=== PATIENT | female | born 1945 | race Caucasian/White ===

== ENCOUNTER 2019-06-06 19:00 | Inpatient (IN) ==
--- NOTE | 2019-06-06 19:30 | PROVIDER DOCUMENTATION ---
HPI-General Adult - General Chief Complaint: Weakness Stated Complaint: SENT PER Time Seen by Provider: 06/06/19 19:17 Source: patient, family ( and daughter at bedside) - History of Present Illness -Gen Adult Nature of Presenting Problems: 73 YO F pmh for HTN and chronic back pain presents with c/o weakness and lightheadedness x 2 days. Pt states she went to PCP and had an abnormal lab as well. She currently denies any new pain, has chronic pain in back and shoulders. She walks around with a walker. She states she had a dizzy spell and landed in her recliner, denies LOC or head injury. Per daughter, pt has been with some confusion x 2 days. Pt states she has poor urine output currently and may have a UTI. Last BM this evening. Location of Pain/Injury: reports: none Quality of Pain: reports: aching, other (chronic pains) Onset/Duration: reports: 2 days ago Timing: reports: still present (light headedness) Context/Activities at Onset: reports: none Modifying Factors: improves with: nothing Associated Symptoms: reports: back/neck pain (chronic). denies: loss of appetite, nausea, seizure, shortness of breath, syncope, vomiting Similar Symptoms Previously?: Yes Recently seen or treated by another doctor?: Yes Review of Systems - Adult - REVIEW OF SYSTEMS - ADULT Constitutional: denies: chills, fever Eyes: reports: no symptoms reported Ears, Nose, Mouth & Throat: reports: no symptoms reported Cardiovascular: denies: chest pain, edema Respiratory: denies: cough, shortness of breath, wheezing Gastrointestinal: reports: see HPI. denies: abdominal pain, constipation, nausea, vomiting Genitourinary: reports: see HPI, urinary retention Musculoskeletal: reports: back pain (chronic) Integumentary: reports: no symptoms reported Neurological: reports: dizziness/vertigo, loss of balance, other (confusion). denies: syncope Past History - Adult - PAST MEDICAL HISTORY-ADULT Review of Records: reports: Social history reviewed & non-contributory. Cardiovascular: reports: HTN Gastrointestinal: reports: denies history Musculoskeletal: reports: neck/back injury, other - PRIOR SURGERIES/PROCEDURES Surgical/Procedure History: reports: back/neck - FAMILY HISTORY Family History: reviewed, not pertinent - SOCIAL HISTORY Smoking: denies Substance Use: denies Living Situation: family Physical Exam-General - PHYSICAL EXAM-ADULT Initial Vital Signs Reviewed: Yes - CONSTITUTIONAL General Appearance: alert - EYES Eyes: PERRL/EOMI, pink conjunctivae - HEAD, EARS, NOSE, MOUTH & THROAT HENMT: normocephalic/atraumatic - NECK Neck: non-tender, supple - RESPIRATORY Respiratory: lungs clear, normal breath sounds - CARDIOVASCULAR Cardiovascular: regular rate, rhythm, no edema - GASTROINTESTINAL (ABDOMEN) Abdominal Exam: non tender, soft - MUSCULOSKELETAL Extremity: normal range of motion - SKIN Integumentary: normal color, normal turgor - NEUROLOGIC Neurologic: borderer II-XII nml as tested, no motor/sensory deficits, negative romberg's sign. negative: facial droop, focal weakness, motor weakness, sensory deficit - PSYCHIATRIC Psych/Mental Status: normal mood/affect, other (mild confusion) Progress - PLAN OF CARE/RESULTS Progress/Plan/Lab Results: Vital Signs - 8 hr 06/06/19 19:09 Temperature 97.8 F Pulse Rate 88 Respiratory Rate 16 Blood Pressure 97/59 O2 Sat by Pulse Oximetry 100 Orders Category Date Time Status ED: Orthostatic Vital Signs (E DIRECTED Care 06/06/19 19:21 Active Saline Loc NOW Care 06/06/19 19:21 Active CBC WITH ELECTRONIC DIFF [HEME] Stat Lab 06/06/19 19:21 Uncollected COMPREHENSIVE METABOLIC PANEL [CHEM] Stat Lab 06/06/19 19:21 Uncollected TSH Stat Lab 06/06/19 19:21 Uncollected URINALYSIS W/POSS RFLX CULT [URINALYSIS] Stat Lab 06/06/19 19:21 Uncollected EKG [EKG] Stat Ther 06/06/19 19:21 Ordered Result Diagrams: 06/06/19 20:47 06/06/19 20:47 - REASSESSMENT Reassessment #1 Time Reassessed: 20:41 Status: unchanged (orthostatics normal) Reassessment #2 Time Reassessed: 21:47 Status: unchanged (labs reviewed. showing hyponatremia at 115) - EKG 1 EKG Read and Signed by:: Wendy Mtz EKG Interpretation (*Must complete 3 of following elements*): Normal Rate: 87 Rhythm: NSR Mcdonald: normal QRS: normal WA Interval: normal ST Wave: normal Prior EKG Comparison: no prior EKG - XRAY 1 XRAY Study: Chest Impression: See EMR Report (HISTORY: weakness TECHNIQUE: Chest two views COMPARISON: None. FINDINGS: The lungs are well expanded. The heart is not enlarged. The vessels are not distended. There are mild increased markings in the left base. No pleural effusions. Prior surgery to the lower neck. IMPRESSION: Scarring versus small left basilar infiltrate. Electronically signed by Aydin Louis 06/06/2019 10:28 PM) - CT/MRI 1 CT Study: Head Impression: See EMR Report (COMPARISON: None. FINDINGS: No parenchymal hemorrhage. No epidural or subdural hematoma. No subarachnoid hemorrhage. Mild chronic microvascular ischemic changes. No mass identified on this noncontrasted exam. No hydrocephalus. No sinus opacification. IMPRESSION: No hemorrhage. Mild chronic microvascular ischemic changes. This exam was performed using automated exposure control, adjustment of mA or kV according to patient size, and/or use of iterative reconstruction technique. Electronically signed by Aydin Louis 06/06/2019 8:38 PM) - CONSULTS/PCP/HOSPITALIST Notification #1 *Consult/PCP/Hospitalist*: Dr. Benoit Time Discussed: 21:47 Consult Disposition: Will see in ED Departure - Departure Date of Disposition Decision: 06/06/19 Time of Disposition Decision: 21:46 DIAGNOSIS: Hyponatremia Disposition: ADMITTED INPATIENT 09 Certified Medical Emergency: Emergent Condition: Stable Referrals and Follow-Ups: Indu Duval MD [Primary Care Provider] - - Critical Care Note This patient required my direct & personal management of CC.: No Attestation - Physician/ LISSETT Attestation The physician spent face to face time with patient:: Yes Advanced Practice Provider documentation review:: Supervising physician onsite and consulted in the evaluation and care of this patient. The physician did have a face to face encounter with the patient.
[2019-06-06] MEDS ORDERED: NS 500 ML IV ONE (19:59)
--- NOTE | 2019-06-06 20:16 | EKG Report ---
Test Performed on : 06/06/2019 7:36:47 PM Test Reason : CP Blood Pressure : / mmHG Vent. Rate : 087 BPM Atrial Rate : 087 BPM P-R Int : 204 ms QRS Dur : 086 ms QT Int : 380 ms P-R-T Axes : 046 -10 004 degrees QTc Int : 457 ms Normal sinus rhythm. Normal ECG No previous ECGs available Unconfirmed Result
--- NOTE | 2019-06-06 20:41 | Diag Imaging Result Doc PS360 ---
EXAM: CT HEAD W/O CONTRAST HISTORY: AMS TECHNIQUE: CT head without contrast COMPARISON: None. FINDINGS: No parenchymal hemorrhage. No epidural or subdural hematoma. No subarachnoid hemorrhage. Mild chronic microvascular ischemic changes. No mass identified on this noncontrasted exam. No hydrocephalus. No sinus opacification. IMPRESSION: No hemorrhage. Mild chronic microvascular ischemic changes. This exam was performed using automated exposure control, adjustment of mA or kV according to patient size, and/or use of iterative reconstruction technique. Electronically signed by Aydin Louis 06/06/2019 8:38 PM
[2019-06-06 21:27] LABS: BASO# 0.01 X1000 (0.0-0.2); BASO% 0.1 % (0.0-0.8); EOS# 0.12 X1000 (0.0-0.7); EOS% 1.2 % (0.0-10.0); HEMATOCRIT 23.8 % (37.0-47.0); HEMOGLOBIN 8.1 g/dL (12.0-16.0); IMM GRAN# 1.29 X1000 (0.0-0.04); IMM GRAN% 12.9 % (0.0-0.5); LYMPH# 0.43 X1000 (1.2-3.4); LYMPH% 4.3 % (20.5-51.1); MCV 91.2 FL (81-99); MONO# 0.31 X1000 (0.11-0.59); MONO% 3.1 % (1.7-9.3); MPV 11.3 FL (7.4-10.4); NEUT# 7.84 X1000 (1.4-6.5); NEUT% 78.4 % (42.2-75.2); PLT 92 X1000 (130-400); RBC 2.61 XMIL (4.2-5.4); RDW 13.9 % (11.5-14.5)
[2019-06-06 21:30] LABS: ALB/GLOB RATIO 1.1; ALBUMIN 2.9 g/dL (3.5-5.0); CALCIUM 8.2 mg/dL (8.8-10.2); POTASSIUM 4.2 mmol/L (3.5-5.1); TOTAL BILIRUBIN 0.49 mg/dL (0.20-1.00); TOTAL PROTEIN 5.5 g/dL (6.3-8.3)
[2019-06-06] MEDS ORDERED: NS 1,000 ML IV SCH (22:00)
--- NOTE | 2019-06-06 22:31 | Diag Imaging Result Doc PS360 ---
EXAM: CHEST-2 VIEWS HISTORY: weakness TECHNIQUE: Chest two views COMPARISON: None. FINDINGS: The lungs are well expanded. The heart is not enlarged. The vessels are not distended. There are mild increased markings in the left base. No pleural effusions. Prior surgery to the lower neck. IMPRESSION: Scarring versus small left basilar infiltrate. Electronically signed by Aydin Louis 06/06/2019 10:28 PM
--- NOTE | 2019-06-06 22:58 | HISTORY AND PHYSICAL ---
PRIMARY CARE PHYSICIAN: Indu Duval MD CHIEF COMPLAINT: Dizziness, weakness times several days. HISTORY OF PRESENTING ILLNESS: A 73-year-old female with a history of spinal stenosis, iron- deficiency anemia and hypertension who presented to emergency department with 2 to 3 days history of having worsening weakness, dizziness and fatigue. She states that the symptoms are worsening. She did not feel well and subsequently she had come to the emergency department. In the ED, she was evaluated. She had laboratories drawn that did show that she was dehydrated and also hyponatremic and due to her presenting symptoms, she will require admission for further management. The patient states that she may have over did it for the past several days or so because she is trying to do a yard sale and she may have over done it during this time. At the time of my examination, patient denied any headache, fever, chills, chest pain, shortness of breath or any weight changes but complained of weakness and not feeling well. PAST MEDICAL HISTORY: Includes spinal stenosis, iron-deficiency anemia and hypertension. PAST SURGICAL HISTORY: Left knee surgery, left femur surgery, back surgery, gastric bypass. ALLERGIES TO: Wellbutrin. CURRENT MEDICATIONS: She does not recall. Nursing staff we will reconcile. SOCIAL HISTORY: No history of smoking, alcohol or illicit drug use. FAMILY HISTORY: No history of coronary disease. REVIEW OF SYSTEMS: Fourteen point review of systems is as in HPI. Other systems negative. PHYSICAL EXAMINATION: GENERAL: Cooperative, friendly female. She is resting comfortably, but she seemed fatigued. VITAL SIGNS: Temperature 97.8 degrees, pulse 88, respirations 16, blood pressure 97/59. HEENT: Atraumatic, normocephalic. Extraocular movements intact. PERRLA. NECK: No masses. CHEST: Clear to auscultation. CARDIOVASCULAR: Regular rate and rhythm. ABDOMEN: Soft. Positive bowel sounds. EXTREMITIES: No edema. NEUROLOGIC: She is awake, alert, oriented x3. : No bladder distention. SKIN: Has poor turgor. LABORATORIES AND STUDIES: WBC 10.0, hemoglobin 8.1, hematocrit 23.8, platelets 92,000. Sodium 115, potassium 4.2, chloride 86, CO2 is 19, BUN is 45, creatinine 3.0, glucose 91. A CT of the head, no hemorrhage. Mild chronic microvascular ischemic changes. Chest x-ray shows scarring worse. There is a small left basilar infiltrate. ASSESSMENT: This is a 73-year-old female with a history of spinal stenosis, iron-deficiency anemia and hypertension who presented to emergency department with several days history of worsening weakness, lethargy and fatigued. She states that during this time, she was also dizzy. She was evaluated in the emergency department. She was found to be in renal failure and also hyponatremic and due to these presenting symptoms, she will require admission for further management. ASSESSMENT: 1. Generalized weakness. 2. Hyponatremia. 3. Acute kidney injury. 4. Iron-deficiency anemia. 5. Hypertension. PLAN: 1. We will admit patient to medical floor with telemetry. 2. We will continue supportive treatment with IV fluids, antiemetics as needed. 3. We will monitor her renal function. Consult Nephrology. 4. We will monitor her hemoglobin and hematocrit closely and she may need iron transfusion. 5. We will monitor blood pressure. Resume antihypertensive agent. 6. Put patient on deep vein thrombosis prophylaxis with sequential compression devices. 7. We will continue to follow and reassess. Make further recommendation based on patient's clinical course. cc: Sal Benoit MD MTDD
[2019-06-07] MEDS ORDERED: NS 1,000 ML IV SCH (00:32)
[2019-06-07 07:46] LABS: CALCIUM 7.6 mg/dL (8.8-10.2); CREATININE 2.7 mg/dL (0.5-0.9); POTASSIUM 4.5 mmol/L (3.5-5.1)
[2019-06-07 07:54] LABS: BASO# 0.01 X1000 (0.0-0.2); BASO% 0.1 % (0.0-0.8); EOS# 0.12 X1000 (0.0-0.7); EOS% 1.5 % (0.0-10.0); HEMATOCRIT 24.4 % (37.0-47.0); HEMOGLOBIN 8.1 g/dL (12.0-16.0); IMM GRAN# 0.06 X1000 (0.0-0.04); IMM GRAN% 0.8 % (0.0-0.5); LYMPH# 0.25 X1000 (1.2-3.4); LYMPH% 3.2 % (20.5-51.1); MCH 29.8 PG (27-31); MCHC 33.2 g/dL (33-37); MCV 89.7 FL (81-99); MONO# 0.36 X1000 (0.11-0.59); MONO% 4.6 % (1.7-9.3); MPV 11.4 FL (7.4-10.4); NEUT# 7.07 X1000 (1.4-6.5); NEUT% 89.8 % (42.2-75.2); PLT 81 X1000 (130-400); RBC 2.72 XMIL (4.2-5.4); RDW 13.9 % (11.5-14.5); WBC 7.87 X1000 (4.8-10.8)
[2019-06-07 07:56] LABS: BANDS 8 % (0-1); LYMPHS 6 % (21-51); MONO 2 % (1-9); SEGS 84 % (42-75)
[2019-06-07 09:59] LABS: URINE SOURCE CATH
[2019-06-07 10:03] LABS: BILIRUBIN URINE NEGATIVE (NEGATIVE); BLOOD URINE TRACE (NEGATIVE); COLOR YELLOW; GLUCOSE URINE NEGATIVE (NEGATIVE); KETONE URINE NEGATIVE (NEGATIVE); LEUKOCYTES URINE LARGE (NEGATIVE); NITRITE URINE POSITIVE (NEGATIVE); PH URINE 6.5; PROTEIN URINE TRACE mg/dL (NEGATIVE); SP GRAVITY URINE 1.005; TURBIDITY URINE HAZY (CLEAR); UR EPITHELIAL CELLS <10 /HPF (<10); URINE BACTERIA 3+ /HPF; URINE WBC TNTC /HPF (<10); UROBILINOGEN URINE NORMAL (NORMAL)
[2019-06-07 10:25] LABS: UR CREAT RANDOM 17.2 mg/dL (11-20); UR PROT RANDOM 11.9 mg/dL
[2019-06-07] MEDS: TYLENOL PO PRN (10:50)
--- NOTE | 2019-06-07 12:02 | Diag Imaging Result Doc PS360 ---
EXAM: US RENAL 2 (RETROPER) COMPLETE INDICATION: decreased renal function TECHNIQUE: COMPARISON: None. FINDINGS: The kidneys are grossly normal in echotexture with no discrete renal mass or hydronephrosis. The right kidney measures 10.3 cm and the left kidney measures 10.9 cm in the greatest longitudinal axes. Right renal cortex measures 0.7 cm and the left renal cortex measures 1 cm in thickness. There is a Diaz catheter in the urinary bladder and the bladder is nondistended. IMPRESSION: Unremarkable renal ultrasound. Electronically signed by Reinaldo Squires 06/07/2019 12:00 PM
[2019-06-07 12:38] LABS: INR 1.14; PROTIME 14.8 Seconds (11.0-16.0)
[2019-06-07 12:39] LABS: PTT 34.9 Seconds (22.3-41.8)
[2019-06-07 12:56] LABS: IRON SATURATION 14 %; TIBC 139 ug/dL; TOTAL IRON 19 ug/dL (49-151); UNBOUND IRON 120 ug/dL (112-346)
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
--- NOTE | 2019-06-07 15:48 | PROGRESS NOTE ---
DATE: 06/07/2019 INTERVAL HISTORY: She was admitted for hyponatremia, acute kidney injury leading to weakness and dizziness. SUBJECTIVE: She is feeling the same. She is still feeling weak. I had a discussion with her about volume depletion, dehydration, use of oral diclofenac and losartan probably contributing to it. I answered all of her questions. Her family is at bedside. Patient denies any burning or pain while micturating. She denies any increasing frequency of urination. VITALS: Temperature 97.9 degrees, pulse 87, respiratory rate 19, blood pressure 107/60, saturating 97% on room air. OBJECTIVE: On physical examination, she is not in any acute distress. Oral cavity is moist. Air entry bilaterally equal. No wheeze or rhonchi. She had inspiratory crackles, bilateral infrascapular region. S1, S2 normal. No murmur or gallop. Abdomen is soft, nontender, obese. No lower extremity edema. She has urine catheter. SIGNIFICANT LABS: She does have normocytic anemia and thrombocytopenia. Improving sodium level as well as chloride level, improving BUN and creatinine. Her iron stores do not suggest iron deficiency. She has chronically elevated alkaline phosphatase, and she has history of osteoporosis. MICROBIOLOGY: No data. IMAGING: Renal ultrasound had unremarkable kidneys. ASSESSMENT AND PLAN: 1. Generalized weakness and dizziness in the setting of profound hyponatremia with acute kidney injury. Her use of oral diclofenac could have contributed to poor oral intake, could have contributed to acute kidney injury. She is also on losartan and has not been able to eat well since last few days. She has been on intravenous fluids with appropriate rise in sodium level in initial 24 hours. I will continue Diaz catheter with close input and output monitoring, and we will give additional intravenous fluids as necessary. I will continue to hold any NSAIDs and ARB medications at the moment. 2. History of iron deficiency anemia with thrombocytopenia. She sees Dr. Jayne Higginbotham outpatient, and I advised her to have outpatient followup with Dr. Higginbotham. 3. Essential hypertension. Currently, she is normotensive. I will continue to monitor her blood pressure. 4. History of chronic spinal stenosis and chronic back pain. I will keep her on acetaminophen. She should also have outpatient follow-up for chronically elevated alkaline phosphatase. She denies any urinary symptoms, though the urine culture is in lab. DISPOSITION: I will continue to monitor patient in the hospital. Plan of care discussed with her and her daughter at bedside. Their questions have been answered. cc: Ruddy Leary MD [facility]
--- NOTE | 2019-06-07 17:06 | ECHO REPORT ---
ORDER DATE: 06/07/2019 INTERPRETING PHYSICIAN: Michele Ramsey MD. CLINICAL INDICATIONS: Patient with renal failure and dyspnea. M-MODE MEASUREMENTS: Left ventricle end diastole: 5.5 cm. Left ventricle end systole: 4.0 cm. Posterior wall: 0.8 cm. Interventricular septum: 0.8 cm. Left atrium: 4.9 cm. Aortic diameter: 2.8 cm. SUMMARY OF 2-DIMENSIONAL IMAGIN. The left ventricular chamber appears to be generous in size. The systolic function is normal, ejection fraction estimated at 55% to 60%. 2. The left atrium is significantly enlarged. 3. The mitral valve looks grossly normal. Color flow mapping indicates mild to moderate degree of regurgitation. 4. Pulse waved Doppler of mitral inflow shows a "normal" E/A ratio. 5. Tissue Doppler of septal and lateral mitral annulus averages 8 cm. 6 .The deceleration time appears to be short, which raises concern for elevated left atrial pressure. 7. The tricuspid valve shows moderate degree of regurgitation. 8. Pulmonary systolic pressure is estimated at 53 to 58 mmHg. 9. The aortic valve is grossly normal. 10.The pulmonic valve is also grossly normal. 11.There is no pericardial effusion, no mass, and no thrombus. Clinical correlation is recommended. cc: MD Scott Schilling MD
--- NOTE | 2019-06-08 07:20 | EKG Report ---
Test Performed on : 06/08/2019 06:44:51 AM Test Reason : Abnormal Telemetry strip Blood Pressure : / mmHG Vent. Rate : 124 BPM Atrial Rate : 124 BPM P-R Int : 180 ms QRS Dur : 078 ms QT Int : 284 ms P-R-T Axes : 068 -18 101 degrees QTc Int : 408 ms Sinus tachycardia. Nonspecific ST and T wave abnormality Abnormal ECG When compared with ECG of 06-JUN-2019 19:36, (Unconfirmed) ST now depressed in Lateral leads Nonspecific T wave abnormality now evident in Lateral leads Confirmed by Vinny Padilla MD ([id number]) on 06/08/2019 9:00:54 AM
[2019-06-08] MEDS ORDERED: NS 1,000 ML IV ONE (07:41)
[2019-06-08 08:05] LABS: RETIC% 1.43 % (0.8-2.1); RETIC-HE 24.7 PG (28.2-36.6)
[2019-06-08] MEDS: TYLENOL PO PRN ×2 (08:05→23:58)
[2019-06-08] MEDS: DITROPAN PO SCH (08:05)
[2019-06-08] MEDS: ZOSYN 3.375 GM in NS 50 ML IV SCH ×3 (08:06→21:27)
[2019-06-08] MEDS: NS 1,000 ML IV SCH ×3 (08:15→23:58)
[2019-06-08 08:18] LABS: BASO# 0.01 X1000 (0.0-0.2); BASO% 0.2 % (0.0-0.8); EOS# 0.04 X1000 (0.0-0.7); EOS% 0.7 % (0.0-10.0); HEMATOCRIT 26.3 % (37.0-47.0); HEMOGLOBIN 8.9 g/dL (12.0-16.0); IMM GRAN# 0.08 X1000 (0.0-0.04); IMM GRAN% 1.5 % (0.0-0.5); LYMPH# 0.09 X1000 (1.2-3.4); LYMPH% 1.6 % (20.5-51.1); MCH 29.5 PG (27-31); MCHC 33.8 g/dL (33-37); MCV 87.1 FL (81-99); MONO# 0.24 X1000 (0.11-0.59); MONO% 4.4 % (1.7-9.3); MPV 11.3 FL (7.4-10.4); NEUT# 5.03 X1000 (1.4-6.5); NEUT% 91.6 % (42.2-75.2); PLT 73 X1000 (130-400); RBC 3.02 XMIL (4.2-5.4); RDW 13.9 % (11.5-14.5); WBC 5.49 X1000 (4.8-10.8)
[2019-06-08 08:38] LABS: BANDS 14 % (0-1); LYMPHS 6 % (21-51); SEGS 78 % (42-75)
[2019-06-08 09:00] LABS: ALB/GLOB RATIO 1.2; ALBUMIN 2.7 g/dL (3.5-5.0); DIRECT BILIRUBIN 0.5 mg/dL (0.00-0.20); TOTAL BILIRUBIN 0.89 mg/dL (0.20-1.00)
[2019-06-08 09:14] LABS: CALCIUM 8.2 mg/dL (8.8-10.2); CREATININE 2.2 mg/dL (0.5-0.9); POTASSIUM 4.4 mmol/L (3.5-5.1)
--- NOTE | 2019-06-08 09:35 | Diag Imaging Result Doc PS360 ---
CHEST-PORTABLE - 06/08/2019 INDICATION: Evaluate for pneumonia COMPARISON: 06/06/2019 FINDINGS: Lung volumes remain low. There are some stable faint atelectasis or infiltrate at the left lower lobe on the hemidiaphragm. No new infiltrates. Heart size is normal. No pneumothorax or pleural effusion. IMPRESSION: No change from prior. Electronically signed by Santos Sharp 06/08/2019 9:32 AM
--- NOTE | 2019-06-08 13:39 | PROGRESS NOTE ---
DATE: 06/08/2019 INTERVAL HISTORY: I was paged in the morning time that the patient had fever of 103 degrees Fahrenheit and she was extremely lethargic. She was also tachycardic. I immediately evaluated the patient at bedside. She is arousable to verbal stimuli, but appears really weak. The patient has multiple family members at the bedside. One of the daughters today tells me that when she visited her primary care doctor, she was found to have a urine infection, though she was not started on antibiotic. She was sent to the emergency room. However, yesterday I did not get this piece of information from patient or the other daughter who was at bedside. In any case, by the time I evaluated her I had ordered normal saline and antibiotics that she has been started on. Additional blood culture, lactate blood tests have been ordered. SUBJECTIVE: She feels very lethargic. She is feeling very weak. She denies any complaints. Family at bedside. Denies any cough. VITALS: Currently temperature of 103.3 degrees, pulse 125, respiratory rate 14, blood pressure 128/74, saturating 99% on 4 L nasal cannula. PHYSICAL EXAMINATION: She is in mild to moderate distress. She is lethargic. Oral cavity is dry. She has inspiratory crackles bilateral infrascapular region.Cardiovascular: S1, S2 normal. Regular. Tachycardic. No murmur, rub, or gallop. Abdomen: Soft. No tender. Extremities: No lower extremity edema. : She has a urine catheter. Neurologic: She is arousable to verbal stimuli and she becomes alert but then becomes drowsy again. She is able to move both upper and lower extremities. LABS: Suggestive of no leukocytosis, normocytic anemia, thrombocytopenia. She also has hyponatremia. Her kidney function is improving at the moment. Her initial troponin was 0.304. Microbiology, blood cultures, and urine culture in lab. On extended review, I could see her urine culture was collected on June 05 which is growing Escherichia coli which is pansensitive as per the report on June 07. IMAGING: Chest x-ray has low lung volumes. There was some atelectasis or infiltrate in left lower lobe, but without any pneumothorax or pleural effusion. EKG suggests sinus tachycardia. ASSESSMENT AND PLAN: 1. Sepsis likely from acute urinary tract infection. Based on her course, I would consider getting a CT scan of the abdomen and pelvis to rule out acute pyelonephritis. Her current presentation could be acute cysto urethritis. Continue intravenous fluids, intravenous Zosyn. Follow up blood culture and urine culture report. Her lactate was normal. 2. Acute kidney injury and hyponatremia on presentation. Could be related to acute pyelonephritis versus volume depletion versus use of oral diclofenac and losartan. I will continue close input and output monitoring, intravenous fluid resuscitation and follow up urine culture results. She her urine output is 3.7 L. Continue to hold nephrotoxic medication. 3. Generalized weakness and dizziness on presentation. This could be related to metabolic derangement. She does have new thrombocytopenia. She does not have any rash and her current sepsis could be contributing to it. I will keep a close eye over platelets to make sure it is not thrombotic thrombocytopenic purpura considering altered mental status, fever, and kidney injury. Hematology/ oncology on board. She also has known history of iron deficiency anemia. 4. Others: She has history of chronic pain, osteoarthritis, essential hypertension, and elevated alkaline phosphatase. I am holding her home medications as I stabilize her sepsis. DISPOSITION: Plan of care discussed with the patient's family members. Their questions have been satisfactorily answered. I will transfer patient to [facility]. cc: MD LAUREANO Felix
--- NOTE | 2019-06-08 14:15 | EKG Report ---
Test Performed on : 06/08/2019 2:04:15 PM Test Reason : Follow up EKG Blood Pressure : / mmHG Vent. Rate : 081 BPM Atrial Rate : 081 BPM P-R Int : 190 ms QRS Dur : 080 ms QT Int : 422 ms P-R-T Axes : 037 -04 -27 degrees QTc Int : 490 ms Normal sinus rhythm. Low voltage QRS Prolonged QT Abnormal ECG When compared with ECG of 08-JUN-2019 06:44, Vent. rate has decreased BY [address] no longer depressed in Lateral leads T wave inversion now evident in Inferior leads Nonspecific T wave abnormality no longer evident in Lateral leads Confirmed by Valerie ARREOLA, Vinny Palacio ([id number]) on 06/08/2019 5:33:42 PM
--- NOTE | 2019-06-08 19:48 | NEPHROLOGY PROGRESS NOTE ---
DATE: 06/08/2019 Subjective: pt voices a fever this AM and feeling lethargic. Family at bedside reports a 103 fever and pt not knowing her name when they got here this AM. Objective: vitals. Temperature 103.3, pulse 125, blood pressure 128/74, 02 sat 99% on 4 L nasal cannula. General: White female lying in bed in some acute distress. Drowsy. HEENT: a traumatic normocephalic pupils equal and reactive to light. mucous membranes moist. Trachea midline. Skin:hot, dry, and intact. Neck: Supple, JVD with hepatojugular reflux. Cardiovascular: tachycardic rate normal rhythm with rate dependent gallop. No murmur. Respiratory: crackles noted to bilateral basis of posterior lobes. Abdomen: soft, mildly tender and nondistended with positive bowel sounds. : not inspected, Diaz in place Extremities: no edema or clubbing noted. Neurological: Drowsy, oriented to person place and time. Labs: WBC 5.49, hemoglobin 8.9, hematocrit 26.3, platelet count 73, sodium 131, potassium 4.4, chloride 98, carbon dioxide 16, anion gap 17, BUN 38, creatinine 2.2, calcium 8.2, total protein5, albumin 2.7, plasma lactate 1.4, intake 720, output 3775 Impression: 1.Urosepesis. Pt noted to have bactiuria, fever, tachycardia, hypotension. Pending cultures. Pt being transferred to [facility] for closer monitoring. Febrile with tachycardic rate. Had a brief episode of disorientation and lethargy this AM. Crackles notes to bilateral posterior lobes. chest X-ray, blood cultures, and IV antibiotics ordered. 2.DAVID likely related to ATN from urosepsis. Her kidney function is improving. She has good urine output. 3.Acid base balance. Stable. 4. Hyponatremia. Resolving. cc: Scott Abarca MD MTDD
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
[2019-06-08] MEDS: MYSOLINE PO SCH (21:25)
[2019-06-09] MEDS: ZOSYN 3.375 GM in NS 50 ML IV SCH ×4 (03:10→19:30)
[2019-06-09 06:35] LABS: BASO# 0.01 X1000 (0.0-0.2); BASO% 0.1 % (0.0-0.8); EOS# 0.03 X1000 (0.0-0.7); EOS% 0.2 % (0.0-10.0); HEMOGLOBIN 7.6 g/dL (12.0-16.0); IMM GRAN# 0.31 X1000 (0.0-0.04); IMM GRAN% 2.2 % (0.0-0.5); LYMPH# 0.33 X1000 (1.2-3.4); LYMPH% 2.3 % (20.5-51.1); MCH 29.2 PG (27-31); MCV 88.5 FL (81-99); MONO# 0.76 X1000 (0.11-0.59); MONO% 5.4 % (1.7-9.3); MPV 11.8 FL (7.4-10.4); NEUT# 12.63 X1000 (1.4-6.5); NEUT% 89.8 % (42.2-75.2); PLT 46 X1000 (130-400); RDW 14.5 % (11.5-14.5); WBC 14.07 X1000 (4.8-10.8)
[2019-06-09 07:01] LABS: ALB/GLOB RATIO 1.1; ALBUMIN 2.1 g/dL (3.5-5.0); CALCIUM 7.3 mg/dL (8.8-10.2); CREATININE 2.1 mg/dL (0.5-0.9); MAGNESIUM 1.7 mg/dL (1.5-2.7); POTASSIUM 3.8 mmol/L (3.5-5.1); TOTAL BILIRUBIN 1.33 mg/dL (0.20-1.00)
--- NOTE | 2019-06-09 08:25 | Diag Imaging Result Doc PS360 ---
EXAM: CT ABDOMEN/PELVIS W/O CONTRAST 06/09/2019 HISTORY: Evaluate for pyelonephritis/ cholecystitis TECHNIQUE: This exam was performed using automated exposure control, adjustment of mA or kV according to patient size, and/or use of iterative reconstruction technique. COMMENT: There are patchy opacities present in the posterior lower lobes bilaterally. There are no previous studies available for comparison. There is a left pleural effusion and a smaller right effusion. There are postsurgical changes in the gastric fundus and left upper quadrant consistent with gastric bypass. There is stranding in the anterior pararenal space on the left and hydronephrosis on the left with a calyceal stone in the lower pole measuring 7 mm in diameter and a stone at the ureteropelvic junction measuring over 6 mm and another more distally measuring over 7 mm. There is a Diaz catheter in the bladder. The bladder is not distended. There is fluid in the cul-de-sac. There is no evidence of appendicitis. The aorta is not distended. There is no evidence of cholelithiasis or right nephrolithiasis. There are spondylotic changes in the visualized portions of the thoracic as well as the lumbar spine. There is severe degenerative disc disease with vacuum phenomenon at L4-5 and there has been laminectomy and fusion at L2-3 and L3-4. IMPRESSION: Left hydronephrosis with nephrolithiasis and proximal ureterolithiasis as described. Bilateral pleural effusions and basilar atelectasis versus pneumonia. Minimal ascites. Electronically signed by Jorge L Edmondson 06/09/2019 8:23 AM
[2019-06-09] MEDS: ARICEPT PO SCH (09:04)
[2019-06-09] MEDS: LEXAPRO PO SCH (09:04)
[2019-06-09] MEDS: DITROPAN PO SCH (09:04)
--- NOTE | 2019-06-09 11:08 | PROGRESS NOTE ---
DATE: 06/09/2019 INTERVAL HISTORY: She was transferred to [facility] yesterday. She was a little hypotensive to begin with, however, after IV fluids however her MAP was again more than 65 mmHg. She has not had any more fever episodes. Her troponins were downtrending. She got a CAT scan of the abdomen and pelvis in the morning time. The result of this is pending. Her alkaline phosphatase was elevated and she was getting a declining trend in platelet count. SUBJECTIVE: She is more awake and alert today than yesterday. She is feeling weak throughout her body but no specific complaints. VITALS: Temperature 97.9, pulse 80, respiratory rate 15, and blood pressure 101/62. She is saturating 100% on 2 L nasal cannula. PHYSICAL EXAMINATION: General: Not in acute distress. HEENT: Oral cavity is dry. Respiratory: Air entry is bilaterally equal. No wheeze, rhonchi, or crackles except in the infrascapular region. Cardiovascular: S1 and S2 are normal. Regular. No murmur, rub, or gallop. Abdomen: Soft. Mild right lower quadrant tenderness. No tenderness on the left side. No flank tenderness. Active bowel sounds. Extremities: No lower extremity edema. Genitourinary: She has a urine catheter. Neurologic: She is alert and oriented. She is able to wiggly all of her extremities. LABS: Suggestive of leukocytosis, normocytic anemia, and thrombocytopenia. She does have hyponatremia and hypokalemia. Her BUN and creatinine are slowly improving. She does have a remarkably elevated alkaline phosphatase which has been present since 2018 but it is more pronounced this time. Microbiology, blood culture and urine culture are growing gram-negative rods. Previous urine culture was growing E. coli. ASSESSMENT AND PLAN: 1. Sepsis from left-sided acute pyelonephritis associated with nephrolithiasis and ureteropelvic junction stone due to gram-negative jeancarlos. Follow final blood and urine culture results. Continue intravenous fluids, intravenous Zosyn, Diaz catheter with close input and output monitoring, and await urology consultation. 2. Acute kidney injury and hyponatremia on presentation likely in the setting of sepsis, acute pyelonephritis, and the use of oral nonsteroidal anti-inflammatory drugs and probably losartan, now improving. Continue intravenous fluids, input and output monitoring, and daily bowel movements. She has adequate urine output. Nephrology Team is on board. 3. Generalized weakness and dizziness on presentation. This could be related to sepsis and metabolic derangement. 4. History of iron deficiency anemia and now worsening thrombocytopenia. She does not have any evidence of hemolysis. Follow up fecal occult blood test to rule out any gastrointestinal bleed. There was no definite evidence of retroperitoneal hemorrhage. I will recheck a CBC in the afternoon time and will transfuse as necessary. She has not been on any blood thinners. 5. Elevated alkaline phosphatase. She had some elevation in early 2019 as well. Ultrasound of the gallbladder is pending. On review of the CT scan there was not identifiable calcified gallstone stones or gallbladder wall thickening or identifiable pericholecystic fluid. She does not have right upper quadrant tenderness. My suspicion of cholecystolithiasis is less at the moment. 6. Elevated troponins: Likely due to demand ischemia due to sepsis with kidney dysfunction. Considering her worsening thrombocytopenia, I would avoid antiplatelets or anticoagulants. 6. Others. She has a history of chronic pain, osteoarthritis, and essential hypertension and I am holding her home medications as I am managing the sepsis first. DISPOSITION: I will continue to monitor the patient in the PVC. I explained to her daughter at the bedside and the other daughter on the phone about her clinical condition and answered all of their questions. cc: Ruddy Leary MD MTDD
[2019-06-09] MEDS ORDERED: QUELICIN (DOSE) ONE (13:03)
[2019-06-09] MEDS ORDERED: DIPRIVAN 1% ONE (13:03)
[2019-06-09] MEDS ORDERED: XYLOCAINE-MPF 2% ONE (13:03)
[2019-06-09] MEDS ORDERED: DECADRON ONE (13:07)
[2019-06-09] MEDS ORDERED: ZOFRAN ONE (13:07)
--- NOTE | 2019-06-09 13:33 | NEPHROLOGY PROGRESS NOTE ---
DATE: 06/09/2019 SUBJECTIVE: She is asleep but overall has been awake and alert according to the family and she has been trying to eat. No nausea or vomiting. She is off of vasopressor support. OBJECTIVE: Vital Signs: Blood pressure 101/62, heart rate 80, respirations 15, afebrile. General: No acute distress. Skin: Warm and dry. Neck: Neck veins are not distended. Heart: Regular. No gallops. Lungs: Equal. No crackles or wheezes. Abdomen: Soft, nontender. Bowel sounds present. Extremities: No edema, clubbing, or cyanosis. IMPRESSION: Acute kidney injury. Creatinine is 2.1 today. Repeat imaging demonstrated left hydronephrosis with a proximal ureteral stone. I discussed this directly with Dr. Feldman and Dr. Edmondson. She is on appropriate antibiotics. She will be evaluated by Dr. Feldman for possible ureteral stenting. I made her NPO. cc: Scott Abarca MD
--- NOTE | 2019-06-09 14:32 | Diag Imaging Result Doc PS360 ---
EXAM: RETROGRADES 2 OR 3 FILMS 06/09/2019 HISTORY: LEFT STONE BASKET EXT, LEFT LASER, LEFT RETRO, LEFT STENT PLACE TECHNIQUE: Retrograde pyelogram 29 images, 0.76 mGy, 33 seconds fluoroscopy time. COMMENT: There are multiple ureteral stones present proximally which were apparently removed by Dr. Feldman. A stent was placed at the termination of the procedure. IMPRESSION: Stone extraction and stent placement on the left. Electronically signed by Jorge L Edmondson 06/09/2019 2:29 PM
[2019-06-09] MEDS: NS 1,000 ML IV SCH (16:21)
[2019-06-09 16:46] LABS: HEMATOCRIT 25.6 % (37.0-47.0); HEMOGLOBIN 8.6 g/dL (12.0-16.0); MCH 29.8 PG (27-31); MCHC 33.6 g/dL (33-37); MCV 88.6 FL (81-99); MPV 11.8 FL (7.4-10.4); RBC 2.89 XMIL (4.2-5.4); RDW 14.8 % (11.5-14.5); WBC 10.6 X1000 (4.8-10.8)
[2019-06-09 17:05] LABS: CALCIUM 7.8 mg/dL (8.8-10.2); POTASSIUM 4.5 mmol/L (3.5-5.1)
--- NOTE | 2019-06-09 18:31 | HEMO/ONC PROGRESS NOTE ---
DATE: 06/09/2019 SUBJECTIVE: There is no evidence of any sana DIC or TTP at this time. Patient has no hemolysis. She is showing evidence of sepsis. ASSESSMENT AND PLAN: We will continue to be available as needed going forward. We will certainly follow up with the patient in our office once she is discharged. We will continue to follow along peripherally while she is in the hospital and be available as needed. Dictated by TEMO Bingham for Jayne Higginbotham MD cc: Jayne Higginbotham MD
[2019-06-09] MEDS: MYSOLINE PO SCH (20:33)
[2019-06-09] MEDS: TYLENOL PO PRN (21:25)
--- NOTE | 2019-06-09 21:56 | OPERATIVE NOTE ---
PROCEDURE DATE: 06/09/2019 SURGEON: Dr. Lan Feldman. PREOPERATIVE DIAGNOSIS: Left ureteral stones, hydronephrosis, acute kidney injury, concern for urosepsis. POSTOPERATIVE DIAGNOSIS: Left ureteral stones, hydronephrosis, acute kidney injury, concern for urosepsis. PROCEDURE: Cystoscopy, left ureteroscopy, laser lithotripsy, stone basket extraction, placement of 6-Maldivian 22 cm ureteral stent. INDICATIONS: 73-year-old female, without history of urolithiasis, who presented to the hospital on 06/06/2019 with weakness, dizziness, and abdominal pain. She was found to be in acute kidney injury. She was followed by our nephrology colleagues and eventually developed a fever. Please note that she had an unremarkable renal ultrasound on 06/07/2019. She then had CT abdomen and pelvis, on 06/09/2019, which revealed, a 6 mm and a 7 mm, two left proximal ureteral stones with hydronephrosis. Urology was consulted. FINDINGS: 2 proximal left ureteral stones were addressed. Stone fragments were sent off for analysis. Successful stent placement. DESCRIPTION OF PROCEDURE: After obtaining informed consent, patient was brought to the operating room. Perioperative antibiotics and anesthesia were administered. She was placed in lithotomy position, prepped and draped in sterile fashion. A 21-Maldivian rigid cystoscope was used to gain access to the urethra and the bladder which were examined in systematic fashion. She had no evidence of mucosal lesions, excessive trabeculations, diverticula, or stones seen within the bladder lumen. I was able to see bilateral ureteral orifices. We cannulated the left ureteral orifice with PTFE wire that was in turn advanced to the level of the left renal pelvis. The 2 stones were seen on KUB in the proximal ureter. I then introduced the rigid ureteroscope alongside of the wire until the distal stone was seen. A 0 Nitinol basket was used to secure the stone, and then 365 micron Holmium laser fiber was used to break the stone up into smaller fragments. Some of the fragments were evacuated with the basket and sent off for analysis. We then treated the 2nd stone which was literally just above the 1st stone. Repeat ureteroscopy to the level of the UPJ and eventually renal pelvis showed no other stones seen. As the ureteroscope was removed, unremarkable ureteral mucosa lining was confirmed. Given significant mucosal edema from the stones and the work done, we elected to place ureteral stent. In standard fashion, a 6- Maldivian, 22 cm left ureteral stent was introduced over the wire via the cystoscope with the proximal coil position confirmed fluoroscopically and distal coil directly visualized. The string was left attached to the stent. We then introduced a 16-Maldivian Diaz catheter and it was placed to gravity drainage with 10 mL of sterile water in the balloon. She was extubated and taken to PACU for further recovery. ESTIMATED BLOOD LOSS: None. COMPLICATIONS: None. SPECIMENS: Left ureteral stone fragments. DRAINS: A 6-Maldivian, 22 cm ureteral stent and a 16-Maldivian Diaz catheter. DISPOSITION: To PACU and subsequently the floor for observation with Diaz catheter to gravity drainage. We plan on removing the stent in 3 days or so. cc: Lan Feldman MD
[2019-06-10] MEDS: NS 1,000 ML IV SCH ×4 (01:04→22:25)
[2019-06-10] MEDS: ZOSYN 3.375 GM in NS 50 ML IV SCH ×2 (01:36→09:33)
[2019-06-10 06:41] LABS: ALB/GLOB RATIO 0.8; ALBUMIN 2.2 g/dL (3.5-5.0); CALCIUM 7.7 mg/dL (8.8-10.2); CREATININE 1.8 mg/dL (0.5-0.9); POTASSIUM 4.7 mmol/L (3.5-5.1); TOTAL BILIRUBIN 0.86 mg/dL (0.20-1.00)
[2019-06-10 08:29] LABS: HEMATOCRIT 23.7 % (37.0-47.0); HEMOGLOBIN 7.9 g/dL (12.0-16.0); MCH 29.4 PG (27-31); MCHC 33.3 g/dL (33-37); MCV 88.1 FL (81-99); MPV 13.6 FL (7.4-10.4); RBC 2.69 XMIL (4.2-5.4); RDW 14.8 % (11.5-14.5); WBC 14.24 X1000 (4.8-10.8)
[2019-06-10] MEDS ORDERED: DITROPAN PO PRN (08:40)
[2019-06-10] MEDS: LEXAPRO PO SCH (09:33)
[2019-06-10] MEDS: DITROPAN PO SCH (09:34)
[2019-06-10] MEDS: ARICEPT PO SCH (09:34)
--- NOTE | 2019-06-10 09:34 | Diag Imaging Result Doc PS360 ---
EXAM: US GB < RUQ (LIMITED) HISTORY: elevated alk phos, sepsis TECHNIQUE: Right upper quadrant ultrasound COMPARISON: None. FINDINGS: The pancreas is predominantly obscured. Normal inferior vena cava. No abdominal aortic aneurysm. There is fatty infiltration of the liver. No ascites in the right upper quadrant. No calcified gallstones. No definite wall thickening. Common bile duct measures 5 mm. Normal right kidney. No hydronephrosis. IMPRESSION: Fatty infiltration of the liver. Electronically signed by Aydin Louis 06/10/2019 9:31 AM
[2019-06-10] MEDS: LEVAQUIN 500 MG/D5W 500 MG/100 ML IVPB IV SCH (11:06)
--- NOTE | 2019-06-10 12:37 | PROGRESS NOTE ---
DATE: 06/10/2019 INTERVAL HISTORY: She underwent cystoscopy, left ureteroscopy, laser lithotripsy, stone basket extraction and placement of ureteral stent yesterday which she tolerated well. However, she continues to remain weak and has had poor appetite. SUBJECTIVE: She states she is feeling slightly better than before. Denies any nausea, vomiting. She does not have any abdominal pain. She denies any chest pain, shortness of breath or cough. Family is at bedside. VITALS: Temperature 98 degrees, pulse 68, respiratory 17, blood pressure 114/69, saturating 99% on room air. PHYSICAL EXAMINATION: Obese, not in any acute distress.HEENT: Oral cavity is dry. She has tracheal hemorrhages on the posterior pharyngeal wall likely sustained during intubation. Lungs: Air entry bilaterally equal. No wheeze, rhonchi, crackles. Cardiovascular: S1, S2 normal. Regular. Not tachycardic. No murmur, rub, or gallop. Abdomen: Obese, soft, slight tenderness in right lower and left lower quadrant, which appears to be nonspecific without guarding or rigidity. Active bowel sounds. Extremities: Mild bilateral lower extremity edema extending up to midshin level. She has urine catheter. Neurologic: She is alert and oriented x3. She is able to raise both upper and lower extremity above ground level. LABS: Suggestive of leukocytosis, normocytic anemia, persistent thrombocytopenia, which appears to have plateaued. She does have elevated BUN and creatinine which is improving. MICROBIOLOGY: Blood culture is growing Escherichia coli sensitive to levofloxacin. Abdomen ultrasound performed today has fatty infiltration of the liver. ASSESSMENT AND PLAN: 1. Severe Sepsis from left-sided acute pyelonephritis associated with nephrolithiasis and ureteropelvic junction stone due to Escherichia coli, status post ureteroscopy and stone removal on June 09. Continue intravenous fluids. Change antibiotics to intravenous levofloxacin. Continue Diaz catheter for close input and output monitoring. Urology team on board. 2. Hyponatremia and acute kidney injury on presentation likely a combination of acute pyelonephritis, sepsis, and ureteral lithiasis, use of NSAIDs and losartan, now improving. Continue intravenous fluids. Input and output monitoring and Diaz catheter. 3. Generalized weakness and dizziness, likely in the setting of sepsis. Start patient on regular diet as well as physical therapy. 4. History of iron deficiency anemia and thrombocytopenia. CT scan of the abdomen and pelvis did not document any retroperitoneal hematoma. The fecal occult blood test was negative. Her sepsis could cause thrombocytopenia, which I will monitor and I will continue to monitor CBC. 5. Elevated alkaline phosphatase of unclear etiology. Apparently, she had mild elevation in November 2018, as well. Abdominal ultrasound does not have any bile duct stone or evidence of cholecystitis. Her AST and ALT have normalized. I will watch alkaline phosphatase for now. She previously had history of femur fracture without known Paget's disease. She may need outpatient GI evaluation. 6. Elevated troponins in the setting of demand ischemia due to sepsis and kidney dysfunction. She would need outpatient cardiology followup if she has symptoms of coronary artery disease, which currently she refuses. 7. Others. She has history of chronic pain, osteoarthritis, essential hypertension, which are stable. DISPOSITION: Continue to monitor patient in [facility]. Plan of care discussed with the patient and her family at bedside. I will await physical therapy evaluation. In future she may need rehab. cc: Ruddy Leary MD MTDD
--- NOTE | 2019-06-10 15:39 | PROGRESS NOTE ---
DATE: 06/10/2019 SUBJECTIVE: Ms. Marin reports a better night overnight in terms of she no longer has had fevers or chills. She still feels fairly weak. OBJECTIVE: Temperature 98.7 degrees, pulse 81, blood pressure 120/69. Her urine output was recorded in the amount of 1000 mL.General: No acute distress. Abdomen: Nontender, nondistended. Back: No CVA tenderness. Genitourinary: Diaz catheter in place draining straw- colored urine with some cloudy material in the bag. PERTINENT LABORATORY DATA: White cell count is 14,000, platelet count is 44,000. Creatinine is down to 1.8. ASSESSMENT: A 73-year-old female with urosepsis who had two left obstructing ureteral stones and underwent laser lithotripsy with stone extraction and stent placement. She is clinically improving as she is no longer febrile. Her white cell count bumped transiently, but I suspect that is from the stress of surgery. PLAN: 1. Keep Diaz catheter to gravity drainage, but okay to remove when fine with primary team. We plan on removing her stent by pulling on the string on the or , depending on how she does clinically. 2. We will follow. cc: Lan Feldman MD
[2019-06-10] MEDS: TYLENOL PO PRN ×2 (16:23→19:05)
[2019-06-10] MEDS: MYSOLINE PO SCH (20:33)
[2019-06-11 06:22] LABS: BASO# 0.02 X1000 (0.0-0.2); BASO% 0.1 % (0.0-0.8); EOS# 0.05 X1000 (0.0-0.7); EOS% 0.3 % (0.0-10.0); IMM GRAN# 0.46 X1000 (0.0-0.04); IMM GRAN% 2.8 % (0.0-0.5); LYMPH# 0.77 X1000 (1.2-3.4); LYMPH% 4.7 % (20.5-51.1); MCH 29.5 PG (27-31); MCHC 33.3 g/dL (33-37); MCV 88.6 FL (81-99); MONO# 0.71 X1000 (0.11-0.59); MONO% 4.3 % (1.7-9.3); MPV 11.2 FL (7.4-10.4); NEUT# 14.44 X1000 (1.4-6.5); NEUT% 87.8 % (42.2-75.2); PLT 55 X1000 (130-400); RBC 2.71 XMIL (4.2-5.4); RDW 14.9 % (11.5-14.5); WBC 16.45 X1000 (4.8-10.8)
[2019-06-11] MEDS: NS 1,000 ML IV SCH (06:29)
[2019-06-11 06:30] LABS: ALB/GLOB RATIO 0.7; CALCIUM 7.9 mg/dL (8.8-10.2); CREATININE 1.6 mg/dL (0.5-0.9); MAGNESIUM 1.8 mg/dL (1.5-2.7); POTASSIUM 4.3 mmol/L (3.5-5.1); TOTAL BILIRUBIN 0.69 mg/dL (0.20-1.00); TOTAL PROTEIN 4.8 g/dL (6.3-8.3)
[2019-06-11 08:03] LABS: BANDS 14 % (0-1); LYMPHS 4 % (21-51); MONO 2 % (1-9); SEGS 78 % (42-75)
[2019-06-11] MEDS: DITROPAN PO SCH (09:00)
[2019-06-11] MEDS: PRILOSEC PO PRN (09:00)
[2019-06-11] MEDS: LEXAPRO PO SCH (09:00)
[2019-06-11] MEDS: TYLENOL PO PRN ×2 (09:01→19:55)
[2019-06-11] MEDS: ARICEPT PO SCH (09:01)
--- NOTE | 2019-06-11 10:17 | PROGRESS NOTE ---
DATE: 06/11/2019 INTERVAL HISTORY: No acute events overnight. Patient states she ate a little bit, but not completely. Her input/output says she ate 25%. She has not been able to come out of bed. I discussed about removing the urine catheter, stopping the IV fluids, and follow up with BMP tomorrow. Currently, she denies any chest pain, shortness of breath. Family is at bedside. VITALS: Currently, temperature of 98 degrees, pulse 83, respiratory rate 17, blood pressure 133/76, saturating 96% on room air. PHYSICAL EXAMINATION: General: She does not appear in any acute distress. Oral cavity: Dry. Lungs: Air entry bilaterally equal. No wheeze or rhonchi. Inspiratory crackles bilateral infrascapular region. Cardiovascular: S1, S2 normal. Regular. No murmur, rub, or gallop. Abdomen: Obese, soft. Mild left lower quadrant tenderness. Active bowel sounds. She has bilateral upper extremity and lower extremity edema. LABS: Suggestive of persistent leukocytosis, thrombocytopenia, improvement in BUN and creatinine on a daily basis. She still has elevated alkaline phosphatase which is better than before. One of the 2 blood cultures drawn on 06/10/2019 was positive. IMAGING: Abdominal ultrasound performed yesterday had fatty infiltration of liver. ASSESSMENT AND PLAN: 1. Severe sepsis, from left-sided acute pyelonephritis, associated with nephrolithiasis and ureteropelvic junction stone due to Escherichia coli, status post ureteroscopy and stone removal on 06/09/2019 with a stent placement. Continue intravenous levofloxacin. I will give her intravenous fluids and a Diaz catheter break, and follow up with BMP tomorrow. Urology team planning to remove the stent on 06/12/2019. 2. Hyponatremia and acute kidney injury on presentation, due to a combination of acute pyelonephritis, sepsis, ureterolithiasis, use of nonsteroidal anti-inflammatory medications and losartan, now improving. I will continue to monitor BMP. She has had good urine output. I stopped the intravenous fluids because of her bilateral upper and lower extremity edema and crackles on exam. 3. Generalized weakness and dizziness in the setting of sepsis. Continue regular diet and physical therapy. 4. History of iron deficiency anemia and thrombocytopenia, without evidence of active bleed. Sepsis could explain it. I will monitor CBC on a daily basis. 5. Elevated alkaline phosphatase, of unclear etiology. She does have fatty infiltration of the liver and ALP was elevated in November 2018 as well. Will continue to monitor it. She may need outpatient GI followup. 6. Elevated troponins in the setting of demand ischemia due to sepsis and kidney dysfunction. She may need outpatient cardiology followup if she has baseline symptoms such as coronary artery disease, which she currently refuses. 7. Others. She has history of chronic pain, osteoarthritis, and hypertension, which are currently stable. 8. Disposition. Continue to monitor patient inside the hospital. Plan of care discussed with patient and her family members. Their questions have been satisfactorily answered. cc: Ruddy Leary MD
--- NOTE | 2019-06-11 11:51 | PROGRESS NOTE ---
DATE: 06/11/2019 SUBJECTIVE: Ms. Marin reports she feels somewhat better. She reports more strength. She denies fevers overnight. OBJECTIVE: Her temperature was not recorded. Per chart review, P 83, BP 133/76. Her urinary output was recorded in the amount of 1850 mL. General: No acute distress. : Bladder is nontender to palpation. Diaz catheter draining straw-colored urine. Laboratory Data: White cell count of 16,000. Creatinine is 1.6 down from 1.8. Her urine and blood cultures came back as E. coli. She had another set drawn yesterday. ASSESSMENT: A 73-year-old female with left pyelonephritis and urosepsis with left obstructing ureteral stones who underwent treatment of those stones. She still has a stent in place. Her creatinine is trending down nicely. I have talked to the patient. We will plan on having the stent removed on 06/13/2019. PLAN: 1. Keep ureteral stent until 06/13/2019, at which point we will remove it by pulling the string. 2. We will follow. 3. I agree with Levaquin for antibiotic coverage. cc: Lan Feldman MD
[2019-06-11] MEDS: LEVAQUIN 500 MG/D5W 500 MG/100 ML IVPB IV SCH (12:39)
[2019-06-11] MEDS: MYSOLINE PO SCH ×2 (19:55→20:08)
[2019-06-12 06:45] LABS: BASO# 0.02 X1000 (0.0-0.2); BASO% 0.2 % (0.0-0.8); EOS# 0.04 X1000 (0.0-0.7); EOS% 0.3 % (0.0-10.0); HEMATOCRIT 22.9 % (37.0-47.0); HEMOGLOBIN 7.5 g/dL (12.0-16.0); IMM GRAN% 5.2 % (0.0-0.5); LYMPH# 0.75 X1000 (1.2-3.4); LYMPH% 6.6 % (20.5-51.1); MCH 29.4 PG (27-31); MCHC 32.8 g/dL (33-37); MCV 89.8 FL (81-99); MONO# 0.51 X1000 (0.11-0.59); MONO% 4.5 % (1.7-9.3); MPV 12.1 FL (7.4-10.4); NEUT# 9.52 X1000 (1.4-6.5); NEUT% 83.2 % (42.2-75.2); PLT 89 X1000 (130-400); RBC 2.55 XMIL (4.2-5.4); RDW 14.6 % (11.5-14.5); WBC 11.44 X1000 (4.8-10.8)
[2019-06-12 07:10] LABS: ALB/GLOB RATIO 0.8; ALBUMIN 2.2 g/dL (3.5-5.0); CALCIUM 7.3 mg/dL (8.8-10.2); CREATININE 1.5 mg/dL (0.5-0.9); POTASSIUM 4.2 mmol/L (3.5-5.1); TOTAL BILIRUBIN 0.84 mg/dL (0.20-1.00); TOTAL PROTEIN 4.9 g/dL (6.3-8.3)
[2019-06-12 07:43] LABS: BANDS 3 % (0-1); LYMPHS 10 % (21-51); SEGS 86 % (42-75)
[2019-06-12] MEDS: DITROPAN PO SCH (08:11)
[2019-06-12] MEDS: LEXAPRO PO SCH (08:11)
[2019-06-12] MEDS: PRILOSEC PO PRN (08:11)
[2019-06-12] MEDS: ARICEPT PO SCH (08:11)
--- NOTE | 2019-06-12 09:39 | NEPHROLOGY PROGRESS NOTE ---
DATE: 06/12/2019 Subjective: patient lying in bed resting. She voices getting no rest due to getting up and having to urinate at bedside commode. Denies any uremic complaints. Objective: vitals. Temperature 98.9, pulse 71, respirations 18, blood pressure 112/61, 02 sat 97% on room air. General: White female lying in bed in no acute distress. HEENT: a traumatic normocephalic pupils equal and reactive to light. mucous membranes moist. Trachea midline. Skin: warm, dry, and intact. Neck: Supple, 6cm JVD with hepatojugular reflux. Cardiovascular: s1; S2, regular rate and rhythm, No murmur or gallop. Respiratory: clear bilaterally with equal air excursion. Abdomen: soft, nontender and nondistended with positive bowel sounds. : not inspected. Extremities: no cyanosis or clubbing noted. Trace Edema to bilateral upper extremities and hips. Neurological:Alert, oriented to person place and time. Labs: WBC 11.44, hemoglobin 7.5, hematocrit 22.9, platelet count 89, sodium 132, potassium 4.2, chloride 101, carbon dioxide 19, anion gap 12, BUN 21, creatinine 1.5, calcium 7.3, alkaline phosphatase 633, total protein 4.9, albumin 2.2, [id number], output 3775. Impression: 1.Urosepesis. Improved following stone extraction. It is planned to pull her stent out today. 2. DAVID likely related to urosepsis. Her kidney function is slowly improving. She had an increased urine output over the last 24 hours, 3.Acid base balance. Stable. 4. Hyponatremia. Resolved. cc: Scott Abarca MD [facility]
[2019-06-12] MEDS ORDERED: ZOFRAN IV PRN (10:11)
[2019-06-12] MEDS: LEVAQUIN 500 MG/D5W 500 MG/100 ML IVPB IV SCH (10:17)
[2019-06-12] MEDS: DULCOLAX PR SCH ×2 (11:19→21:27)
--- NOTE | 2019-06-12 11:26 | PROGRESS NOTE ---
DATE: 06/12/2019 INTERVAL HISTORY: No acute events overnight. Her blood cultures, unfortunately, returned positive. She continues to remain on IV antibiotics. New set of blood cultures has been ordered. SUBJECTIVE: Ms. Marin is feeling better. She is eating a little bit. Daughter is at bedside. I discussed about improvement in liver function. I answered all of their questions. Social work service is on board for future rehab. She denies any chest pain, shortness of breath. She had occasional nausea for which I have ordered Zofran. She has not had a bowel movement. VITALS: Temperature 98.9 degrees, pulse 71, respiratory rate 18, blood pressure 112/61, saturating 97% on room air. PHYSICAL EXAMINATION: Obese. Not in acute distress. Oral cavity is moist. She has some petechial hemorrhages on pharynx, likely due to trauma sustained during intubation. Air entry bilaterally equal. No wheeze or rhonchi. Mild crackles, infrascapular region, for which I ordered an incentive spirometer. S1, S2 normal. No murmur, rub, or gallop. Abdomen: Obese, soft. Active bowel sounds. Nontender. She has mild bilateral upper and lower extremity tenderness. She is alert and oriented at the moment x3. LABS: Suggestive of improvement in WBC count, stable hemoglobin. She does have improvement in thrombocytopenia. Her sodium and chloride are in acceptable range. BUN and creatinine have been improving. MICROBIOLOGY: Repeat set of blood culture drawn today is pending. ASSESSMENT AND PLAN: 1. Severe sepsis from left-sided acute pyelonephritis associated with ureterolithiasis due to Escherichia coli, status post ureteroscopy, stone removal, and stent placement on June 09. Continue intravenous levofloxacin. Repeat set of blood cultures ordered on June 12. Urology team planning removal of stent on June 13. 2. Hyponatremia and acute kidney injury on presentation due to combination of acute pyelonephritis, sepsis, ureterolithiasis, and use of nonsteroidal anti-inflammatory drug medication and losartan at home, now improving. Her urine output is adequate. She has mild edema of upper and lower extremities so I had discontinued intravenous fluids. 3. Generalized weakness, lethargy, and dizziness on presentation in the setting of sepsis, now improving. Continue a regular diet and physical therapy. 4. Elevated alkaline phosphatase and thrombocytopenia. Her sepsis could have made it. Ultrasound of abdomen only had fatty liver, now improving. I will monitor CBC and CMP. She may need outpatient gastrointestinal followup. 5. Elevated troponin in the setting of demand ischemia due to sepsis and kidney dysfunction. She did not have any chest pain. She would need outpatient cardiology followup. 6. Others. She has a history of chronic pain, osteoarthritis, hypertension, which are currently stable; she has iron deficiency anemia and was being followed up by oncology team as an outpatient. 7. Disposition. I will consider transitioning patient from PVC to the floor. business services representative on board for rehab. Plan of care discussed with the patient and her daughter at bedside. Their questions have been answered. cc: Ruddy Leary MD
[2019-06-12] MEDS: LOVENOX SUBQ SCH (16:14)
[2019-06-12] MEDS: TYLENOL PO PRN (17:30)
[2019-06-12] MEDS: MYSOLINE PO SCH (21:27)
[2019-06-13 06:44] LABS: BASO# 0.01 X1000 (0.0-0.2); BASO% 0.1 % (0.0-0.8); EOS# 0.05 X1000 (0.0-0.7); EOS% 0.4 % (0.0-10.0); HEMATOCRIT 23.1 % (37.0-47.0); HEMOGLOBIN 7.6 g/dL (12.0-16.0); IMM GRAN# 0.77 X1000 (0.0-0.04); IMM GRAN% 6.5 % (0.0-0.5); LYMPH# 0.66 X1000 (1.2-3.4); LYMPH% 5.5 % (20.5-51.1); MCH 29.6 PG (27-31); MCHC 32.9 g/dL (33-37); MCV 89.9 FL (81-99); MONO# 0.58 X1000 (0.11-0.59); MONO% 4.9 % (1.7-9.3); MPV 11.5 FL (7.4-10.4); NEUT# 9.86 X1000 (1.4-6.5); NEUT% 82.6 % (42.2-75.2); PLT 130 X1000 (130-400); RBC 2.57 XMIL (4.2-5.4); RDW 14.4 % (11.5-14.5); WBC 11.93 X1000 (4.8-10.8)
[2019-06-13 07:22] LABS: ALBUMIN 2.3 g/dL (3.5-5.0); CALCIUM 8.3 mg/dL (8.8-10.2); CREATININE 1.3 mg/dL (0.5-0.9); PHOSPHORUS 2.6 mg/dL (2.7-4.5); POTASSIUM 4.2 mmol/L (3.5-5.1)
[2019-06-13 07:27] LABS: BANDS 1 % (0-1); EOS 1 % (1-10); LYMPHS 7 % (21-51); MONO 5 % (1-9); SEGS 84 % (42-75)
[2019-06-13 07:28] LABS: ANISOCYTOSIS 1+; LARGE PLATELETS OCCASIONAL; MICROCYTOSIS 1+; POIKILOCYTOSIS 2+; TARGET CELLS 2+
[2019-06-13] MEDS: ARICEPT PO SCH (09:31)
[2019-06-13] MEDS: DITROPAN PO SCH (09:31)
[2019-06-13] MEDS: LEXAPRO PO SCH (09:31)
[2019-06-13] MEDS: DULCOLAX PR SCH ×2 (09:32→20:15)
--- NOTE | 2019-06-13 10:44 | PROGRESS NOTE ---
DATE: 06/13/2019 SUBJECTIVE: Ms. Marin states she is feeling better. She sat up in the chair and ate breakfast. She walked 20 steps to the mijares and 20 steps back. She states that she denies any chest pain or shortness of breath. OBJECTIVE: Vital Signs: Blood pressure is 131/54, with a heart rate of 78, respirations 18, temperature is 98.8 degrees oral, with room air saturations 98 to 99 percent. HEENT: Head is normocephalic, atraumatic. Mucous membranes are moist. Neck is supple with trachea midline. Petechial hemorrhages are still noted. Pulmonary: Breath sounds are clear with no increased work of breathing noted. Chest rises and falls symmetrically with respiration. Chest wall is nontender to palpation. Gastrointestinal: Abdomen is soft, nontender, nondistended, with bowel sounds in all 4 quadrants. Cardiovascular: Regular rate and rhythm. S1, S2 appreciated. She has no lower extremity edema. Calves are nontender bilaterally, with peripheral pulses palpable x4 extremities. Neurologic: She is alert and oriented x3. Labs: WBC is 11.9, with hemoglobin 7.6, hematocrit 23.1, and platelets of 130,000. Sodium 128, potassium 4.2, BUN 16, creatinine 1.3, with a glucose of 75. ASSESSMENT AND PLAN: 1. Severe sepsis from left-sided acute pyelonephritis associated with ureterolithiasis and Escherichia coli, status post ureteroscopy with stone removal and stent placement on June 09. We will continue her intravenous antibiotics. Blood cultures drawn on 06/12/2019 are pending. 2. Hyponatremia and acute kidney injury, most likely due to a combination of acute pyelonephritis, sepsis, ureterolithiasis, and use of nonsteroid anti-inflammatory drugs as well as losartan. This is improving. Urine output is adequate. Extremity edema has decreased somewhat. 3. Generalized weakness, lethargy, and dizziness in the setting of sepsis. This is improving. She denied any dizziness today while walking or sitting in a chair. 4. Thrombocytopenia. This is resolved. 5. Elevated alkaline phosphatase. Ultrasound of the abdomen showed fatty liver. We will continue to trend her labs. 6. Elevated troponin in the setting of demand ischemia due to sepsis and kidney dysfunction. She will need outpatient cardiology followup. 7. Hypertension. This is stable. 8. Chronic pain. We will continue with her current regimen. 9. Iron deficiency anemia, which is followed by oncology as an outpatient. 10. Disposition. greeter guest services is following the patient regarding rehab. Dictated by GENE Bonilla for Elliot Lindsay MD cc: GENE Bonilla MD
[2019-06-13] MEDS: LEVAQUIN 500 MG/D5W 500 MG/100 ML IVPB IV SCH (11:00)
--- NOTE | 2019-06-13 12:11 | NEPHROLOGY PROGRESS NOTE ---
DATE: 06/13/2019 Subjective: patient lying in bed watching TV. Denies any uremic complaints. Voices feeling better. Objective: vitals. Temperature 98.8, pulse 78, respirations 19, blood pressure 131/54, 02 sat 99% on room air. General: White female lying in bed in no acute distress. HEENT: atraumatic normocephalic pupils equal and reactive to light. mucous membranes moist. Trachea midline. Skin: warm, dry, and intact. Neck: Supple, 6cm JVD with hepatojugular reflux. Cardiovascular: s1; S2, regular rate and rhythm, No murmur. Respiratory: clear bilaterally with equal air excursion. Abdomen: soft, nontender and nondistended with positive bowel sounds. : not inspected. Extremities: no cyanosis or clubbing noted. Trace Edema to bilateral upper extremities and hips. Neurological:Alert, oriented to person place and time. Labs: WBC 11.93, hemoglobin 7.6, inadequate 23.1, platelet count 130, sodium 128, potassium 4.2, chloride 96, carbon dioxide 17, and I get 15, BUN 16, creatinine 1.3, calcium 8.3, phosphorus 2.6. input 490, output 250 with 2 unmeasured voids Impression: 1.DAVID likely related to urosepsis. Her kidney function is slowly improving. Urine output is adequate. Urology plans to pull the stent out today. We will sign off and follow up in office. cc: Scott Abarca MD MTDD
[2019-06-13] MEDS: LOVENOX SUBQ SCH (16:08)
--- NOTE | 2019-06-13 17:06 | INFECTIOUS DISEASE CONSULT REP ---
DATE: 06/13/2019 CONCLUSION: The patient has an E coli urinary tract infection due to a stone that caused a left hydronephrosis. There is an associated bacteremia. RECOMMENDATIONS: I am going to plan on treating the patient for 6 weeks with Levaquin because she has metal in her back that could have become infected hematogenously and following that I will put the patient on a low dose of an antibiotic indefinitely to prevent any flare-up of an infection that is on the metal and at this time dormant. I agree with treating the patient with Levaquin. I have changed it from IV to p.o. Day 1 of treatment with Levaquin will be the first day that the patient's repeat blood cultures are sterile. I would suggest a total of 6 weeks of treatment with p.o. Levaquin with day 1 being the first day that the repeat blood cultures are sterile. Some of the side effects of Levaquin including rash, diarrhea, seizures, and tendon rupture have been explained the patient who agrees with treatment. Because the patient has a lot of metal in her the metal could have become infected while the patient was bacteremic with E coli. Therefore, I will be treating the patient with 6 weeks of treatment and after that put her on a low dose of an antibiotic other than Levaquin to prevent any infection that is on metal from flaring up. The patient does have at this time some kidney problems and therefore I do not think I would use Septra for the long-term treatment rather I probably would use something like Keflex 500 mg p.o. every 12 hours after the 6 weeks of treatment with Levaquin. I also would not want to use Levaquin in a lower dose because I think it would be better with her kidney function alteration not use it for long-term treatment. DISCUSSION: The patient had anorexia and fever but no dysuria. She was seen by a physician who told her to come to the emergency room right away because she had kidney failure. The patient's laboratory studies show a CBC with a white blood cell count of 11,930, hemoglobin 7.6, and platelet count 130,000. Creatinine on admission was 2, now it is 1.3 with a GFR of 40. The patient's liver function studies are normal except for an alkaline phosphatase which is 633 at this time. The patient's CT scan of the abdomen and pelvis showed a left hydronephrosis and a proximal ureterolithiasis. The patient has undergone laser lithotripsy and stone extraction with a basket. An abdominal ultrasound showed a fatty liver. PAST MEDICAL HISTORY/REVIEW OF SYSTEMS: Eyes and ears: The patient has decreased vision, but her hearing is good. Neck: No stiffness. Respiratory: No cough or shortness of breath. Cardiac: No chest pain or palpitations. GI: The patient was anorectic when she got sick with the urinary tract infection. : See present illness. Neurologic: She does not have any history of seizures and she has not had any recent motor or sensory function loss. LEAD CASE MANAGER HISTORY: She is a 4, para 3, AB 1. PREVIOUS HOSPITALIZATIONS AND OPERATIONS: Patient has had 3 labor and deliveries, a miscarriage, she has also had a gastric bypass and laminectomy x5 and metal was put in her spine. MEDICAL DISEASES: Positive for hypertension and renal calculi. I think the patient has a degree of dementia. INFECTIOUS DISEASE HISTORY: Positive for UTI. FAMILY HISTORY: Positive for diabetes mellitus, hypertension and cancer. [place]IAL HISTORY[place] . She does not smoke cigarettes, drink alcoholic beverages or abuse drugs. She has dogs and cats for pets. ALLERGIES: She has an allergy to bupropion. HOME MEDICATIONS: Include B12 injections, diclofenac, Aricept, Lexapro, gabapentin, hydrocodone, Cozaar, omeprazole and Mysoline. PHYSICAL EXAMINATION: Vital Signs: Temperature is 98.9 degrees, pulse 79, respirations 18, blood pressure 135/62, patient is 5 feet 1 inch tall, weighs 196 pounds. General: This is an obese elderly female. She is in no acute distress. Head/eyes/ears/nose/throat: She can hear my spoken words and see near objects. She does not have any white coating on her tongue. There is no drainage from her nose or ears. Neck: No meningismus. Lungs: Clear to auscultation. Cardiovascular: Regular heart rate. Abdomen: Soft and nontender. Neurologic: Patient is alert. She can move her extremities. There is no tremor. Her sensation is intact to touch. Her memory as regarding her medical history was decreased. Integument: No rash noted. Thank you for the consult. cc: Hernan Daley MD [facility]
[2019-06-13] MEDS: MYSOLINE PO SCH (20:15)
[2019-06-14 07:51] LABS: BASO# 0.01 X1000 (0.0-0.2); BASO% 0.1 % (0.0-0.8); EOS# 0.04 X1000 (0.0-0.7); EOS% 0.4 % (0.0-10.0); HEMATOCRIT 22.6 % (37.0-47.0); HEMOGLOBIN 7.4 g/dL (12.0-16.0); IMM GRAN# 0.56 X1000 (0.0-0.04); IMM GRAN% 6.3 % (0.0-0.5); LYMPH# 0.61 X1000 (1.2-3.4); LYMPH% 6.8 % (20.5-51.1); MCH 29.5 PG (27-31); MCHC 32.7 g/dL (33-37); MONO# 0.47 X1000 (0.11-0.59); MONO% 5.3 % (1.7-9.3); MPV 11.8 FL (7.4-10.4); NEUT# 7.26 X1000 (1.4-6.5); NEUT% 81.1 % (42.2-75.2); PLT 181 X1000 (130-400); RBC 2.51 XMIL (4.2-5.4); RDW 14.3 % (11.5-14.5); WBC 8.95 X1000 (4.8-10.8)
[2019-06-14 08:00] LABS: ALBUMIN 2.4 g/dL (3.5-5.0); CALCIUM 7.6 mg/dL (8.8-10.2); CREATININE 1.2 mg/dL (0.5-0.9); PHOSPHORUS 2.7 mg/dL (2.7-4.5); POTASSIUM 4.2 mmol/L (3.5-5.1)
[2019-06-14 08:54] LABS: BANDS 4 % (0-1); LYMPHS 10 % (21-51); MONO 6 % (1-9); SEGS 76 % (42-75)
[2019-06-14] MEDS: TYLENOL PO PRN (09:36)
[2019-06-14] MEDS: ARICEPT PO SCH (09:36)
[2019-06-14] MEDS: LEXAPRO PO SCH (09:36)
[2019-06-14] MEDS: DULCOLAX PR SCH ×2 (09:36→09:37)
[2019-06-14] MEDS: DITROPAN PO SCH (09:36)
[2019-06-14] MEDS ORDERED: LEVAQUIN PO SCH (11:00)
[2019-06-14 11:43] VITALS: BP 124/59
--- NOTE | 2019-06-14 12:12 | DISCHARGE SUMMARY ---
ADMISSION DATE: 06/06/2019 DISCHARGE DATE: DISCHARGE DIAGNOSES: 1. Severe sepsis from left-sided acute pyelonephritis associated with urolithiasis due to Escherichia coli, status post ureteroscopy, stone removal, and stent placement on 06/09/2019. Stent has been removed on 06/14/2019. 2. Hyponatremia and acute kidney injury on presentation. 3. Generalized weakness. 4. Elevated alkaline phosphatase and thrombocytopenia. 5. Elevated troponins in the setting of demand ischemia. 6. History of chronic pain. 7. Osteoarthritis. 8. Hypertension. 9. Generalized weakness and physical deconditioning. PROCEDURES PERFORMED: 1. Head CT scan dated 06/06/2019. Impression: No hemorrhage, mild chronic microvascular ischemic changes. 2. Chest x-ray dated 06/06/2019. Impression: Scarring versus small left basilar infiltrate. 3. Echocardiogram dated 06/07/2019. Impression: Ejection fraction 55 to 60 percent. Pulmonary systolic arterial pressure 53 to 58 mmHg/pulmonary hypertension. Tricuspid valve shows moderate degree of regurgitation. No thrombus. Mitral valve with mild to moderate degree of regurgitation as well and the left atrium is significantly enlarged. 4. Renal ultrasound dated 06/07/2019. Impression: Unremarkable renal ultrasound. 5. Chest x-ray dated 06/08/2019. Impression: No change from prior. 6. Abdomen and pelvis CT scan dated 06/09/2019. Impression: Left hydronephrosis with nephrolithiasis and proximal ureterolithiasis, bilateral pleural effusion, and bibasilar atelectasis versus pneumonia. 7. Cystoscopic exam with left ureteroscopy, laser lithotripsy, stone basket extraction, and placement of ureteral stent due to left ureteral stone, hydronephrosis, acute kidney injury dated 06/09/2019. CONSULTS: Nephrology department, Dr. Abarca; hematology/oncology department, Dr. Jayne Higginbotham; urology department, Dr. Feldman; infectious disease department, Dr. Hernan Daley. HOSPITAL COURSE: A 73-year-old female with a history of spinal stenosis, iron deficiency anemia, and hypertension who presented to the emergency department with a 2 to 3 day history of having worsening weakness, dizziness, and fatigue. She was admitted on 06/06/2019. As per the patient, the symptoms are worsening. In the emergency department, she was evaluated. She was dehydrated and also hyponatremic due to her presenting symptoms. At the point of examination, this patient denied any headache, fever, chills, chest pain, shortness of breath, but she was not feeling good. We did multiple x-rays and multiples studies including an echocardiogram that showed pulmonary hypertension but her ejection fraction was stable, mitral and tricuspid regurgitation. Nephrology department was consulted due to her acute kidney injury, likely due to acute tubular necrosis. Initially, she received some fluids but then they were stopped due to her increase in pulmonary pressures. Also, they took care of her hyponatremia that was likely due to her acute kidney dysfunction. We ran a DIC panel for her thrombocytopenia and anemia, and also hematology/oncology department was consulted but the patient did fine. The patient's kidney function was recovering. Actually, upon admission, it was around 3 and today it is 1.2 and it looks like this is her baseline. Her sodium level also is much better. At the beginning, it was 115 and now it is 130, and she seems to be chronically hyponatremic since 2013 at least. Urology department evaluated this patient. We did a CT scan of the abdomen that showed left hydronephrosis with nephrolithiasis and proximal ureterolithiasis. She went to the OR on 06/09/2019 where a cystoscopic exam and left ureteroscopy with laser lithotripsy and stone basket extraction were done. Also, they placed a ureteral stent at that time and it has been removed already today, 06/14/2019. This patient does have generalized weakness. Her vital signs are more stable and she is not using oxygen. Laboratory improved and actually her white blood cell count now is normal. At some point, it was 16. Hemoglobin is still low but this is chronic. The platelet count improved and now is normal. At some point, it was around 44,000. Today, it is 181,000. She seems to be doing much better. She will be discharged to a rehab center. At the moment of discharge, this patient was completely alert and oriented x3. She was able to recognize people at the bedside but she does have generalized weakness. She is tolerating p.o. Infectious disease department evaluated this patient and since this patient has some metal and she has a blood culture that showed E. coli and also E. coli in the urine, they have recommended to give her levofloxacin for 6 weeks. After that, they will follow up this patient as an outpatient because basically, this patient will need more treatment as an outpatient since this bacteria can colonize the metal. They will follow this patient up in 5 weeks. PHYSICAL EXAMINATION: Vital Signs: Temperature 97.9 degrees, pulse 88, respiratory rate 16, blood pressure 135/63, oxygen saturation 96 on room air. HEENT: Head normocephalic. No trauma. PERRLA. Neck: Supple. No JVD. No masses. Central trachea. Chest: Breath sounds clear to auscultation. No wheezing. No rales. Abdomen: Soft, nontender, nondistended. No hepatosplenomegaly. Cardiovascular: RRR. Extremities: No edema, no clubbing, no cyanosis. Neurological Examination: The patient is alert. She is oriented x3. No focal deficits but generalized weakness. LABORATORY: WBC 8.9, hemoglobin 7.4, hematocrit 22.6, platelets 181,000. Sodium 130, potassium 4.2, chloride 96, bicarbonate 21, BUN 11, creatinine 1.2, glucose 82, calcium 7.6, phosphorus 2.7, albumin 2.4. DISCHARGE MEDICATIONS: Tylenol 650 mg p.o. q.6 hours as needed, Dulcolax 10 mg per rectal b.i.d., vitamin B12 1000 mcg q.30 days, IJ, donepezil 5 mg p.o. daily, Lexapro 20 mg p.o. daily, gabapentin 300 mg p.o. t.i.d., [place] 7.5 every 6 hours as needed for pain, levofloxacin 500 mg p.o. daily to complete 6 weeks, omeprazole 40 mg p.o. as needed, oxybutynin chloride 10 mg p.o. daily, Ditropan 5 mg p.o. t.i.d. as needed, Primidone 50 mg p.o. at bedtime. TIME DISCHARGING THIS PATIENT: Forty minutes. FOLLOWUP: Follow up with Dr. Daley, infectious disease department, in 5 weeks. Follow up with Dr. Feldman in 4 weeks. Please call for schedule. Follow up with her primary care doctor in 3 weeks. cc: Elliot Lindsay MD
--- NOTE | 2019-08-27 03:25 | CONSULTATION ---
DATE OF CONSULTATION: 06/09/2019 UROLOGIC CONSULTATION REASON FOR CONSULTATION: Left ureteral stones, urosepsis, hydronephrosis. HISTORY OF PRESENT ILLNESS: A 73-year-old female, who was admitted on 06/04/2019 due to dizziness and weakness. She was diagnosed with urosepsis. She had imaging with a renal ultrasound on 06/07/2019 being fairly unremarkable and subsequent CT abdomen and pelvis on 06/09/2019 revealing hydronephrosis with nephrolithiasis and 2 left ureteral stones with obstruction. Urology was consulted. The patient denies previous history of urolithiasis. She reports intermittent left flank pain. She denies gross hematuria or dysuria currently. She reports a history of recurrent UTIs. Her flank pain is sharp, colicky, intermittent, moderate in severity, radiates to her abdomen. Nothing makes it worse, nothing makes it better. It is associated with dizziness and weakness. PAST MEDICAL HISTORY: Spinal stenosis, hypertension chronic anemia. PAST SURGICAL HISTORY: Gastric bypass, back surgery, femur surgery, left knee surgery. ALLERGIES: Bupropion. MEDICATIONS: Lexapro, gabapentin, [place], losartan, omeprazole, Ditropan, amoxicillin, Aricept, vitamin B12. FAMILY HISTORY: Negative for malignancies. SOCIAL HISTORY: She denies tobacco, alcohol, or illicit drug use. REVIEW OF SYSTEMS: Reviewed and 12 systems negative with exception of the HPI. PHYSICAL EXAMINATION: T 98.5 degrees, P 109, BP 83/49.General: Pleasant female. HEENT: Normocephalic, atraumatic. Cardiovascular: Tachycardic but regular rhythm. Pulmonary: Bilateral breath sounds. Abdomen: Protuberant. Normal bowel sounds. Mildly to palpation on the left upper quadrant. Back: No CVA tenderness. Genitourinary: Diaz catheter in place draining straw-colored urine. The bladder is nontender to palpation. Lymphatic: No groin lymphadenopathy. No cervical lymphadenopathy. Neurologic: Alert and oriented x3. Psychiatric: Appropriate mood and affect. PERTINENT LABORATORY DATA: White cell count is 6000, hematocrit 26. Creatinine is 2.2. Her urinalysis on 06/07/2019 was positive for bacteria, nitrites and blood. PERTINENT IMAGES: Per HPI. ASSESSMENT: A 73-year-old female with urosepsis and acute kidney injury, who has 2 left ureteral stones with hydronephrosis as well as renal stones. I went over the CT scan findings with the patient and the family who is present at bedside. We discussed that she would best benefit from ureteroscopy with laser lithotripsy, stone basket extraction, and possible ureteral stent. We discussed risks of the procedure including, but not limited to, bleeding, infection, injury to the bladder, injury to the ureter, inability to remove the stones and need for additional interventions. We discussed alternatives, which would be observation versus cystoscopy with ureteral stent placement versus nephrostomy tube. She wants to proceed with ureteroscopy, laser lithotripsy. PLAN: 1. NPO. 2. To the operating room on 06/09/2019 for cystoscopy, left ureteroscopy, laser lithotripsy, stone basket extraction, and stent placement. cc: Lan Feldman MD MTDD
== END 2019-06-14 15:07 | DRG 853 ==
LOC: ED 19:00 → SUATTDRO 23:29 → 3N 23:29 → 2N 06-08 09:21 → 3N 06-12 13:48
PROVIDERS: ATTEND Internal Medicine